=== PATIENT | female | born 1985 ===

== ENCOUNTER 2024-10-19 12:30 | Inpatient (IN) | payer OTHER ==
[~2024-10-19] VITALS: Ht 152.4 cm; Wt 83.5 kg
[2024-10-19] MEDS ORDERED: TOPROL XL50 M1 PO (13:33)
[2024-10-19] MEDS ORDERED: LEVO-T88 MCG PO (13:34)
[2024-10-19] MEDS ORDERED: NIFEDIPINE20 MG (13:34)
[2024-10-19 13:40] VITALS: BP 130/90
[2024-10-19 15:25] LABS: RH POSITIVE
[2024-10-28] MEDS ORDERED: ERTAPENEM SODIUM 1,000 MG VIAL IV ONE (10:45)
[2024-10-28] MEDS ORDERED: LIDOCAINE HCL 1%/EPINEPHRINE 20ML VIAL IJ ONE (11:00)
[2024-10-28] MEDS ORDERED: BUPIVACAINE HCL 30 ML VIAL IJ ONE (11:00)
[2024-10-28] MEDS ORDERED: ONDANSETRON HCL 2 MG/ML VIAL IV PRN (12:30)
[2024-10-28] MEDS ORDERED: MORPHINE SULFATE 4 MG/ML CARTRIDGE IV PRN (12:30)
[2024-10-28] MEDS ORDERED: RINGERS SOLUTION,LACTATED 1,000 ML IV SCH (12:30)
[2024-10-28] MEDS ORDERED: OxyCODONE HCL 5 MG TABLET (ROXICODONE) PO PRN (12:30)
[2024-10-28] MEDS ORDERED: HYOSCYAMINE SULFATE 0.125 MG TAB.SUBL SL SCH (13:00)
[2024-10-28] MEDS ORDERED: SUGAMMADEX SODIUM 200 MG/2 ML VIAL IV ONE (13:15)
[2024-10-28] MEDS ORDERED: MORPHINE SULFATE 4 MG/ML VIAL IV ONE ×2 (13:15→13:45)
[2024-10-28 14:07] LABS: BASO % 0.2 % (0.1-1.2); EOS # 0.01 (0.04-0.54); EOS % 0.1 % (0.7-7.0); LYMPH # 1.03 (1.18-3.74); LYMPH % 5.3 % (19.3-53.1); MEAN PLATELET VOLUME 11.30 fl (9.4-12.4); MONO # 0.58 (0.24-0.82); MONO % 3.0 % (4.7-12.5); NEUT # 17.54 (1.56-6.13); NEUT % 91.0 % (34.0-71.1); RED CELL DISTRIBUTION WIDTH 12.6 % (11.6-14.4)
[2024-10-28 15:16] LABS: BUN CREA RATIO 10.0 (7.0-25.0); CREATININE SERUM 0.77 mg/dL (0.55-1.02); GFR 83.89; GLUCOSE FASTING 117.0 mg/dL (65-100); OSMOLALITY SERUM 282.0 MOSM/KG (275-295)
[2024-10-28] MEDS ORDERED: LACTOBACILLUS ACIDOPHILUS 1 CAP CAP PO SCH (17:00)
[2024-10-28] MEDS ORDERED: POLYETHYLENE GLYCOL 3350 17 GM BLIST.PACK PO SCH (17:00)
[2024-10-28] MEDS ORDERED: GABAPENTIN 300 MG CAPSULE PO SCH (17:00)
[2024-10-28] MEDS ORDERED: MAGNESIUM SULFATE IN WATER 2 GM/50 ML PIGGYBAG IV NR (17:15)
[2024-10-28] MEDS ORDERED: ACETAMINOPHEN 500 MG GEL..CAP PO STA (17:21)
[2024-10-28] MEDS ORDERED: POTASSIUM PHOS,M-BASIC-D-BASIC 9 MM in 0.9 % SODIUM CHLORIDE 250 ML IV NR (20:00)
[2024-10-28] MEDS ORDERED: FAMOTIDINE/PF 20 MG/2 ML VIAL IV SCH (21:00)
[2024-10-28] MEDS ORDERED: NIFEDIPINE 20 MG CAPSULE PO SCH (21:00)
[2024-10-29] MEDS ORDERED: ACETAMINOPHEN 500 MG GEL..CAP PO SCH
[2024-10-29 01:01] VITALS: BP 120/77; O2SAT 96
[2024-10-29] MEDS ORDERED: LEVOTHYROXINE SODIUM 88 MCG TABLET PO SCH (06:00)
[2024-10-29 08:00] VITALS: BP 120/75; O2SAT 97
[2024-10-29 08:52] LABS: BASO % 0.2 % (0.1-1.2); EOS # 0.01 (0.04-0.54); EOS % 0.1 % (0.7-7.0); LYMPH # 1.78 (1.18-3.74); LYMPH % 11.6 % (19.3-53.1); MEAN PLATELET VOLUME 11.60 fl (9.4-12.4); MONO # 1.06 (0.24-0.82); MONO % 6.9 % (4.7-12.5); NEUT # 12.45 (1.56-6.13); NEUT % 80.7 % (34.0-71.1); RED CELL DISTRIBUTION WIDTH 12.7 % (11.6-14.4)
[2024-10-29] MEDS ORDERED: MAGNESIUM CHLORIDE 70 MG TABLET.DR PO SCH (09:00)
[2024-10-29] MEDS ORDERED: METOPROLOL SUCCINATE 50 MG TAB.SR.24H PO SCH (09:00)
[2024-10-29 09:25] LABS: BUN CREA RATIO 13.0 (7.0-25.0); CREATININE SERUM 0.54 mg/dL (0.55-1.02); GFR 126.35; GLUCOSE FASTING 67.0 mg/dL (65-100); OSMOLALITY SERUM 276.0 MOSM/KG (275-295)
[2024-10-29] MEDS ORDERED: POTASSIUM PHOS,M-BASIC-D-BASIC 15 MM in 0.9 % SODIUM CHLORIDE 250 ML IV NR (14:45)
[2024-10-29] MEDS ORDERED: MORPHINE SULFATE 4 MG/ML VIAL IV STA (14:46)
[2024-10-29 16:00] VITALS: BP 104/67; O2SAT 94
[2024-10-29] MEDS ORDERED: NAPH,MB-DB/K PH,MBDB 1 PKT PACKET PO SCH (17:00)
[2024-10-29] MEDS ORDERED: ENOXAPARIN SODIUM 40 MG/0.4 ML SYRINGE SUBCUTANEO SCH (17:00)
[2024-10-30 01:21] VITALS: BP 112/67; O2SAT 98
[2024-10-30 08:04] LABS: BASO % 0.3 % (0.1-1.2); EOS # 0.03 (0.04-0.54); EOS % 0.3 % (0.7-7.0); LYMPH # 1.63 (1.18-3.74); LYMPH % 13.7 % (19.3-53.1); MEAN PLATELET VOLUME 11.80 fl (9.4-12.4); MONO # 0.93 (0.24-0.82); MONO % 7.8 % (4.7-12.5); NEUT # 9.19 (1.56-6.13); NEUT % 77.5 % (34.0-71.1); RED CELL DISTRIBUTION WIDTH 13.2 % (11.6-14.4)
[2024-10-30 08:25] LABS: BUN CREA RATIO 11.0 (7.0-25.0); CREATININE SERUM 0.55 mg/dL (0.55-1.02); GFR 123.7; GLUCOSE FASTING 68.0 mg/dL (65-100); OSMOLALITY SERUM 279.0 MOSM/KG (275-295)
[2024-10-30 10:31] VITALS: BP 124/84; O2SAT 95
[2024-10-30 16:00] VITALS: BP 111/78; O2SAT 95
[2024-10-31 01:28] VITALS: BP 119/78; O2SAT 92
[2024-10-31 08:00] VITALS: BP 140/70
[2024-10-31] MEDS ORDERED: NAPH,MB-DB/K PH,MBDB 1 PKT PACKET PO NR (09:15)
== END 2024-10-31 14:20 | disposition home or self-care (01) | DRG 331 ==
LOC: SURH 10-24 12:30 → O/R 10-28 11:43 → SURH 10-28 16:18
PROVIDERS: ADMIT Colon & Rectal Surgery; ATTEND Colon & Rectal Surgery
PROC: 0DBP4ZZ Excision of Rectum, Percutaneous Endoscopic Approach (ICD-10-PCS; 2024-10-28)
PROC: 0DJD8ZZ Inspection of Lower Intestinal Tract, Via Natural or Artificial Opening Endoscopic (ICD-10-PCS; 2024-10-28)
PROC: 0DNW4ZZ Release Peritoneum, Percutaneous Endoscopic Approach (ICD-10-PCS; 2024-10-28)
PROC: 0DTN4ZZ Resection of Sigmoid Colon, Percutaneous Endoscopic Approach (ICD-10-PCS; principal; 2024-10-28 13:15)
DX: K57.20 Diverticulitis of large intestine with perforation and abscess without bleeding (principal)